=== PATIENT | male | born 1985 | race African-American/Black ===

== ENCOUNTER 2019-11-24 12:31 | Emergency (ER) | payer OTHER ==
[~2019-11-24] VITALS: Ht 182.9 cm; Wt 89.4 kg
[2019-11-24] MEDS ORDERED: TRANSDERM-SCOP1 EACH RT. EAR (14:00)
[2019-11-24 14:17] VITALS: BP 127/75
== END 2019-11-24 14:18 | disposition home or self-care (01) ==
LOC: M.ERS 12:31
DX: H81.11 Benign paroxysmal vertigo, right ear (principal); R51 Headache

== ENCOUNTER 2021-01-29 21:09 | Emergency (ER) | payer OTHER ==
[~2021-01-29] VITALS: Ht 182.9 cm; Wt 93.0 kg
[~2021-01-29 21:09] MED LIST: TRANSDERM-SCOP1 EACH RT. EAR
[2021-01-30] MEDS ORDERED: MEDROLDOSEPACK PO (00:10)
[2021-01-30] MEDS ORDERED: ZOFRAN ODT4 MG PO (00:10)
[2021-01-30] MEDS ORDERED: TRANSDERM-SCOP1 EACH TRANSDERM (00:10)
[2021-01-30 00:55] VITALS: BP 150/69
--- NOTE | 2021-01-30 13:00 | EKG ---
[place] [address] ELECTROCARDIOGRAM REPORT Name: CELESTINO BARCLAY Room: [facility]#: [id number] Admission: 01/29/21 Attend Phys: Discharge: 01/30/21 Date of : 83 Date of Service: 01/29/212134 Report #: [id number] THIS REPORT FOR: //name// [facility] ED Test Date: 2021-01-29 Test Time: 21:35:25 Pat Name: CELESTINO BARCLAY Department: Room: Gender: Insulation Mechanic: [facility] : 1985 Requested By: Adina Shepard Order Number: [id number] Teresa MD: Tej Child Measurements Intervals [place] Rate: 67 P: 48 OR: 140 QRS: -23 QRSD: 100 T: -10 QT: 382 QTc: 404 Interpretive Statements Sinus rhythm RSR' in V1 or V2, probably normal variant Left ventricular hypertrophy Borderline T abnormalities, inferior leads Anterior ST elevation, probably due to early repolarization Baseline wander in lead(s) II,III,aVR,aVL,aVF,V1,V2,V4 No previous ECG available for comparison Electronically Signed On 01-30-2021 13:00:31 CDT by Tej Child [email or web address] <ELECTRONICALLY SIGNED> By: Tej Child MD, [facility] 01/30/211299 34 34 Tej Child MD, [facility] /EPI
--- NOTE | 2021-01-30 13:01 | EKG ---
[place] [address] ELECTROCARDIOGRAM REPORT Name: CELESTINO BARCLAY [id number] Admission: 01/29/21 Attend Phys: Discharge: 01/30/21 Date of : 83 Date of Service: 01/29/210 Report #: [id number] THIS REPORT FOR: //name// [facility] ED Test Date: 2021-01-29 Test Time: 23:20:22 Pat Name: CELESTINO BARCLAY Department: Room: Gender: [employer] Work[employer]: [place] : 1985 Requested By: Adina Shepard Order Number: [id number] MD: Tej Child Measurements Intervals [place] Rate: 54 P: 15 TX: 141 QRS: -15 QRSD: 110 T: -11 QT: 423 QTc: 401 Interpretive Statements Sinus rhythm Left ventricular hypertrophy Borderline T abnormalities, inferior leads Anterior ST elevation, probably due to early repolarization Baseline wander in lead(s) V1 No previous ECG available for comparison Electronically Signed On 01-30-2021 13:00:55 CDT by Tej Child [email or web address] <ELECTRONICALLY SIGNED> By: Tej Child MD, FAC 01/30/21 1300 2320 2320 Tej Child MD, [facility] /EPI
== END 2021-01-30 00:57 | disposition home or self-care (01) ==
LOC: M.ERS 21:09
DX: H61.22 Impacted cerumen, left ear (principal); R42 Dizziness and giddiness